=== PATIENT | female | born 1975 ===

== ENCOUNTER → 2021-06-28 | Outpatient (CLI) | payer SELFPAY | END | disposition home or self-care (01) | LOC: LAB 15:18 → LAB SHORT 15:18 → PLD 15:18 | DX: C44.519 Basal cell carcinoma of skin of other part of trunk (principal); D22.5 Melanocytic nevi of trunk; C44.719 Basal cell carcinoma of skin of left lower limb, including hip; L81.4 Other melanin hyperpigmentation | CPT/HCPCS: 88305 ==

== ENCOUNTER → 2022-12-20 | Outpatient (CLI) | payer OTHER | LOC: PLD 10:08 → LAB SHORT 10:08 | DX: D48.5 Neoplasm of uncertain behavior of skin (principal) | CPT/HCPCS: 88305 ==